=== PATIENT | female | born 1960 | race Caucasian/White ===

== ENCOUNTER → 2016-12-09 | Outpatient (CLI) | payer BC ==
--- NOTE | 2016-12-09 17:08 | PCVCIMAG ---
APPROVED REPORT Study performed: 12/09/2016 09:14:46 EXAM: Comprehensive 2D, Doppler, and color-flow Echocardiogram Patient Location: Echo lab Status: routine BSA: 2.04 HR: 69 bpmBP: 126/76 mmHg Rhythm: NSR Other Information Study Quality: Adequate Indications Aortic Valve Disease Hypertension/HDD #21 bioprosthetic valve 2D Dimensions IVSd: 6.04 (7-11mm)LVOT Diam: 20.51 (18-24mm) LVDd: 49.47 mm PWd: 7.30 (7-11mm) LVDs: 21.97 (25-40mm) Left Atrium: 35.54 (27-40mm) Aortic Root: 16.36 mm LV Single Plane 4CH: 62.75 % LV Single Plane 2CH: 67.97 %Tovar's LVEF: 65.36 % Biplane EF: 67.2 % Volumes Left Atrial Volume (Systole) Single Plane 4CH: 56.26 mLSingle Plane 2CH: 54.46 mL Biplane LA Volume: 57.00 mLLA ESV Index: 28.00 mL/m2 Aortic Valve AoV Peak Jun.: 2.71 m/s AO Peak Gr.: 31.16 mmHgLVOT Max P.02 mmHg AO Mean Gr.: 15.94 mmHgLVOT Mean P.00 mmHg AO V2 Mean: 1.90 m/sLVOT Max V: 1.00 m/s AO V2 VTI: 59.82 cmLVOT Mean V: 0.65 m/s CHIDI (VTI): 1.13 [id number] V1 VTI: 20.46 cm CHIDI Vmax: 1.22 cm2 SV (LVOT): 67.55 mL Mitral Valve E/A Ratio: 1.4 MV Decel. Time: 131.41 ms MV E Max Jun.: 1.20 m/s MV A Jun.: 0.88 m/s IVRT: 72.66 ms TDI E/Lateral E': 12.00E/Medial E': 15.00 Medial E' Jun.: 0.08 m/s Lateral E' Jun.: 0.10 m/s Pulmonary Valve PV Peak Jun.: 1.05 m/sPV Peak Gr.: 4.39 mmHg Pulmonary Vein P Vein S: 0.48 m/sP Vein A: 0.51 m/s P Vein D: 0.60 m/sP Vein A Dur.: 134.9 msec P Vein S/D Ratio: 0.80 Tricuspid Valve TR Peak Jun.: 2.76 m/s TR Peak Gr.: 30.52 mmHg TV Vmax: 0.65 m/sPA Pressure: 38.00 mmHg Left Ventricle The left ventricle is normal size. There is normal LV segmental wall motion. There is normal left ventricular wall thickness. Left ventricular systolic function is normal. The left ventricular ejection fraction is within the normal range. The left ventricular diastolic function is normal. Right Ventricle The right ventricle is normal size. The right ventricular systolic function is normal. Atria The left atrium size is normal. The right atrium size is normal. Aortic Valve The aortic valve is normal in structure. Bioprosthetic aortic valve is present. Prosthetic aortic valve is normal in appearance. No aortic regurgitation is present. There is no aortic valvular stenosis. Mitral Valve The mitral valve is normal in structure. There is no mitral valve regurgitation noted. No evidence of mitral valve stenosis. Tricuspid Valve The tricuspid valve is normal in structure. Mild tricuspid regurgitation with a PA pressure of 38mmHg. Pulmonic Valve The pulmonary valve is normal in structure. There is no pulmonic valvular regurgitation. Great Vessels The aortic root is normal in size. The ascending aorta is normal in size. IVC is normal in size and collapses with >50% inspiration Pericardium There is no pericardial effusion. There is no pleural effusion. <Conclusion> The left ventricle is normal size. Left ventricular systolic function is normal. The left ventricular ejection fraction is within the normal range. The left ventricular diastolic function is normal. The left atrium size is normal. The right atrium size is normal. There is no aortic valvular stenosis. There is no mitral valve regurgitation noted. Mild tricuspid regurgitation with a PA pressure of 38mmHg. There is no mitral valve regurgitation noted. There is no pericardial effusion.
== END | disposition home or self-care (01) ==
LOC: PCVCIMAG 08:49
PROVIDERS: ATTEND Internal Medicine Cardiovascular Disease
DX: I07.1 Rheumatic tricuspid insufficiency (principal); I10 Essential (primary) hypertension; Q23.1 Congenital insufficiency of aortic valve; Q25.1 Coarctation of aorta; E78.00 Pure hypercholesterolemia, unspecified; Z90.710 Acquired absence of both cervix and uterus; Z79.82 Long term (current) use of aspirin
CPT/HCPCS: 80061; 93005; 93306; G0463

== ENCOUNTER → 2018-01-15 | Outpatient (CLI) | payer BC ==
--- NOTE | 2018-01-15 11:23 | PCVCIMAG ---
APPROVED REPORT Study performed: 01/15/2018 08:59:21 EXAM: Comprehensive 2D, Doppler, and color-flow Echocardiogram Patient Location: Echo lab Status: routine BSA: 2.04 HR: 66 bpmBP: 130/70 mmHg Rhythm: NSR Other Information Study Quality: Good Risk Factors: Cardiac Risk Factors: Hyperlipidemia Indications Aortic Valve Disease Prosthetic Valve Dyspnea #21 Bioprosthetic Aortic Valve (01/2014) 2D Dimensions IVSd: 8.74 (7-11mm)LVOT Diam: 21.00 (18-24mm) LVDd: 39.83 mm PWd: 8.88 (7-11mm)Ascending Ao: 24.71 (22-36mm) LVDs: 24.56 (25-40mm) Left Atrium: 35.92 (27-40mm) Aortic Root: 24.08 mm LV Single Plane 4CH: 62.87 % LV Single Plane 2CH: 63.74 % Biplane EF: 64.3 % Volumes Left Atrial Volume (Systole) Single Plane 4CH: 41.29 mLSingle Plane 2CH: 48.47 mL LA ESV Index: 22.00 mL/m2 Aortic Valve AoV Peak Jun.: 2.58 m/s AO Peak Gr.: 26.59 mmHgLVOT Max P.59 mmHg AO Mean Gr.: 15.69 mmHg AO V2 Mean: 1.90 m/sLVOT Max V: 1.07 m/s AO V2 VTI: 61.71 cm CHIDI Vmax: 1.43 cm2 Mitral Valve E/A Ratio: 1.4 MV Decel. Time: 200.86 ms MV E Max Jun.: 1.23 m/s MV A Jun.: 0.88 m/s IVRT: 69.20 ms TDI E/Lateral E': 12.30E/Medial E': 15.38 Medial E' Jun.: 0.08 m/s Lateral E' Jun.: 0.10 m/s Pulmonary Valve PV Peak Jun.: 1.09 m/sPV Peak Gr.: 4.75 mmHg AR End Vmax: 1.20 m/s Pulmonary Vein P Vein S: 0.50 m/sP Vein A: 0.34 m/s P Vein D: 0.61 m/sP Vein A Dur.: 76.1 msec P Vein S/D Ratio: 0.82 Tricuspid Valve TR Peak Jun.: 2.62 m/sRAP Estimate: 7.00 mmHg TR Peak Gr.: 27.56 mmHg PA Pressure: 35.00 mmHg Left Ventricle The left ventricle is normal size. There is normal LV segmental wall motion. There is normal left ventricular wall thickness. Left ventricular systolic function is normal. The left ventricular ejection fraction is within the normal range. LVEF is 65%. The left ventricular diastolic function is normal. Right Ventricle The right ventricle is normal size. The right ventricular systolic function is normal. Atria The left atrium size is normal. The right atrium size is normal. Aortic Valve Normal prosthetic aortic valve gradient. #21 Bioprosthetic aortic valve is normal in appearance. No aortic regurgitation is present. There is no aortic valvular stenosis. Mitral Valve The mitral valve is normal in structure. Trace mitral regurgitation. No evidence of mitral valve stenosis. Tricuspid Valve The tricuspid valve is normal in structure. Mild tricuspid regurgitation. Pulmonary artery pressure is 35 mmHg. Pulmonic Valve The pulmonary valve is normal in structure. Mild pulmonic regurgitation. Great Vessels The aortic root is normal in size. IVC is normal in size and collapses >50% with inspiration. Pericardium There is no pericardial effusion. <Conclusion> The left ventricle is normal size. LVEF is 65%. The left ventricular diastolic function is normal. The right ventricle is normal size. The left atrium size is normal. Normal prosthetic aortic valve gradient. #21 Bioprosthetic aortic valve is normal in appearance. No aortic regurgitation is present. Trace mitral regurgitation. Mild tricuspid regurgitation. Pulmonary artery pressure is 35 mmHg. Mild pulmonic regurgitation. The aortic root is normal in size. There is no pericardial effusion.
== END | disposition home or self-care (01) ==
LOC: PCVCIMAG 11:08
PROVIDERS: ATTEND Internal Medicine Cardiovascular Disease
DX: I07.1 Rheumatic tricuspid insufficiency (principal); I10 Essential (primary) hypertension; R06.09 Other forms of dyspnea
CPT/HCPCS: 93306

== ENCOUNTER → 2019-02-09 | Outpatient (CLI) | payer BC ==
--- NOTE | 2019-02-10 17:30 | PCVCIMAG ---
APPROVED REPORT Study performed: 02/09/2019 09:47:36 Exam: Stress Echocardiogram Indication: Dyspnea Patient Location: Echo lab Stress Nurse: Gilma Campbell RN Status: routine Ht: 5 ft 9 in HR: 86 bpm BP: 140/90 mmHg Rhythm: NSR Medical History Medical History: Bioprosthesis aortic valve Procedure The patient underwent an Exercise Stress Test using the Luis Enrique Protocol. Blood pressure, heart rate, and EKG were monitored. An Echocardiogram was performed by social services technician in four stages in quad fashion. At peak stress, four selected images were obtained and placed side by side with resting images for comparison. Stress Test Details Stress Test: Exercise stress testing was performed using a Luis Enrique protocol. HR Resting HR: 86 bpmMax Heart Rate (APMHR): 162 bpm Max HR Achieved: 151 bpmTarget HR (85% APMHR): 137 bpm % of APMHR: 93 Recovery HR: 92 bpm HR response to stress: Normal HR response to stress BP Resting BP: 140/90 mmHg Max BP: 162/82 mmHg Recovery BP: 128/70 mmHg BP response to stress: Normal blood pressure response to stress. ECG Resting ECG: Sinus Rhythm Stress ECG: Sinus Rhythm Recovery ECG: Sinus Rhythm Clinical Reason for Termination: Maximal effort Exercise duration: 9 min sec Highest Stage Achieved: Stage 4: 4.2 mph at 16% grade. Exercise capacity: 10.40 METs Overall Exercise Capacity for Age: Normal Pre-Stress Echo The resting Echocardiogram showed normal left ventricular contractility with an estimated Ejection Fraction of about 55-60%. Normal wall motion in all segments on baseline images. Post-Stress Echo The stress Echocardiogram showed normal left ventricular contractility with an estimated Ejection Fraction of about 60-65%. Normal augmentation of wall motion in all segments on post stress images. Clinical No clinical or ECG evidence for ischemia. Conclusion Clinical Response: Non-ischemic Exercise Capacity: Average Stress ECG Response: Non-ischemic Stress Echo Images: Non-ischemic The left ventricle is normal in size and wall thickness in both the rest and stress images. #21 bioprosthesis aortic valve. Peak gradient is 29mmHg. Mean gradient is 17mmHg. Aortic Valve area is 1.3cm2. Other Information Study Quality: Good <Conclusion> The left ventricle is normal in size and wall thickness in both the rest and stress images. #21 bioprosthesis aortic valve. Peak gradient is 29mmHg. Mean gradient is 17mmHg. Aortic Valve area is 1.3cm2.
== END | disposition home or self-care (01) ==
LOC: PCVCIMAG 09:57
PROVIDERS: ATTEND Internal Medicine Cardiovascular Disease
DX: I35.0 Nonrheumatic aortic (valve) stenosis (principal); I10 Essential (primary) hypertension; E78.5 Hyperlipidemia, unspecified; R94.31 Abnormal electrocardiogram [ECG] [EKG]; Z95.2 Presence of prosthetic heart valve; Z91.040 Latex allergy status
CPT/HCPCS: 93325; 93351